=== PATIENT | female | born 1985 | race Caucasian/White ===

== ENCOUNTER 2017-02-23 09:10 | Emergency (ER) | payer BC ==
[~2017-02-23] VITALS: Ht 167.6 cm; Wt 97.0 kg
[~2017-02-23 09:10] MED LIST: HYDR-3498 PO; IBUP-1542 PO; PREN1TAB12 PO; PREN1TAB49 PO
[2017-02-23 09:33] VITALS: Ht 167.6 cm; Wt 97.0 kg
[2017-02-23 10:33] LABS: URINE BLOOD (Dip) POC 2+ (NEGATIVE)
--- NOTE | 2017-02-23 10:51 | RADRPT ---
PROCEDURE: US Pelvis CLINICAL INDICATION: R PELVIC PAIN TECHNIQUE: Multiple sonographic images of the pelvis were obtained utilizing a transabdominal and endovaginal technique. The images were reviewed on a PACS workstation. COMPARISON: None. LMP: 02/09/2017 FINDINGS: The uterus measures 8.5 x 4.4 x 6.2 cm. The endometrial echo complex measures 19 mm in thickness. No discrete lesion is seen. The right ovary measures 4.9 x 2.6 x 2.7 cm. The left ovary measures 4.9 x 1.8 x 2.3 cm. There is no rmal vascular flow in both ovaries. There is a 2.3 cm minimally complex cystic lesion with low level internal echoes in the right ovary and no significant peripheral vascular flow which is likely a hemorrhagic or corpus luteal cyst. No significant pelvic free fluid is identified. IMPRESSION: 2.3 cm minimally complex cystic lesion in the right ovary is likely a hemorrhagic or corpus luteal c yst. There is prominence of the endometrium which measures 19 mm in thickness. Correlation with a beta H CG level is recommended to evaluate for possible . RPTAT: EE Physician Gretta Date Time Electronically viewed and signed by Physician Gretta on 02/23/2017 10:51 RA/
[2017-02-23] MEDS ORDERED: IBUP-1542 PO (11:02)
[2017-02-23] MEDS ORDERED: CEPH-443 PO (11:02)
--- NOTE | 2017-02-23 11:05 | ERD ---
ER Documentation Chief Complaint Date/Time DATE: 02/23/17 TIME: 11:03 Chief Complaint RLQ ABD PAIN 3/10 WITH SPOTTING. PT STATES SHE IS NOT . HPI This 31-year-old female presents with right lower quadrant abdominal pain for the last 2 weeks with some spotting. She denies . She denies dysuria , fevers, nausea vomiting. Her last menstrual period was approximately 2 weeks ago and is usually regular. ROS All systems reviewed and are negative except as per history of present illness. Medications Home Meds Active Scripts Cephalexin* (Keflex*) 500 Mg Capsule, 500 MG PO QID for 5 Days, CAP Prov:GIDEON CHAVES MD 02/23/17 Ibuprofen* (Motrin*) 600 Mg Tab, 600 MG PO Q6, #20 TAB Prov:GIDEON CHAVES MD 02/23/17 Hydrocodone Bit-Acetaminophen* (Knott*) 5-325 Mg Tab, 1 TAB PO Q6 Y for PAIN, # 7 TAB Prov:ZEN DODGE PA-C 11/28/15 Ibuprofen* (Motrin*) 600 Mg Tab, 600 MG PO Q6, #20 TAB Prov:ZEN DODGE PA-C 11/28/15 Reported Medications Vit/Fe Fumarate/Fa ( 1-1 Tablet) 1 Tab Tablet, 1 TAB PO DAILY 10/15/12 Vits W-Ca,Fe,Fa(<1MG) () 1 Tab Tablet, 1 TAB PO 07/14/12 Allergies Allergies: Coded Allergies: No Known Allergy (Verified Allergy, Unknown, 04/23/07) PMhx/Soc History of Surgery: Yes (kidney stones) Anesthesia Reaction: No Hx Neurological Disorder: No Hx Respiratory Disorders: No Hx Cardiac Disorders: No Hx Psychiatric Problems: No Hx Miscellaneous Medical Probl: No Hx Alcohol Use: No Hx Substance Use: No Hx Tobacco Use: No Smoking Status: Never smoker Physical Exam Vitals Vital Signs Date Time Temp Pulse Resp B/P Pulse Ox O2 Delivery O2 Flow Rate FiO2 02/23/17 09:33 98.7 64 16 131/89 99 Physical Exam Const: [] Alert, [id number]. Head: Atraumatic Eyes: Normal Conjunctiva ENT: Normal External Ears, Nose and Mouth. Neck: Full range of motion..~ No meningismus. Resp: Clear to auscultation bilaterally Cardio: Regular rate and rhythm, no murmurs Abd: Soft, minimal right lower quadrant tenderness without rebound or masses. No Maher sign., non distended. Normal bowel sounds Skin: No petechiae or rashes Back: No midline or flank tenderness Ext: No cyanosis, or edema Neur: Awake and alert Psych: Normal Mood and Affect Results 24 hrs Laboratory Tests Test 02/23/17 10:33 Bedside Urine pH (LAB) 6.0 Bedside Urine Protein (LAB) Negative Bedside Urine Glucose (UA) Negative Bedside Urine Ketones (LAB) Trace Bedside Urine Blood 2+ Bedside Urine Nitrite (LAB) Negative Bedside Urine Leukocyte Esterase (L Trace Procedures/MDM Urine shows trace leukocytes and 1+ hemoglobin. HCG is negative. Pelvic ultrasound shows a 2.3 cm minimally complex cystic lesion in the right ovarian likely hemorrhagic or corpus luteum cyst. Patient presents with right lower quadrant pelvic pain for last 2 weeks with signs of an ovarian cyst. I doubt appendicitis given the absence of fever and nausea and the duration of symptoms. She will be treated with Keflex although is uncertain of she does have a UTI but will be treated given the findings on urine. She will treated with ibuprofen as well. She is advised to follow-up with primary doctor and possibly gynecology for further evaluation treatment. She should return for worsening pain, fevers, vomiting, new worsening symptoms. I am recommending a repeat ultrasound in 4-6 weeks to follow-up on cyst. There is no evidence to suggest PID, tubo-ovarian abscess, ovarian torsion. The patient was stable with no new complaints during the ER course. Clinically, there is no current evidence to suggest meningitis, sepsis, acute abdomen, pneumonia, acute coronary syndrome, pulmonary embolism, or any other emergent condition appearing to require further evaluation or hospitalization. The patient should certainly return for any new or worsening symptoms per the aftercare instructions. They should otherwise follow-up with her primary care doctor for reevaluation this week. Departure Diagnosis: Primary Impression: UTI (urinary tract infection) Urinary tract infection type: acute cystitis Hematuria presence: without hematuria Qualified Code: N30.00 - Acute cystitis without hematuria Additional Impression: Ovarian cyst Laterality: left Qualified Code: N83.202 - Cyst of left ovary Condition: Stable Patient Instructions: Understanding Urinary Tract Infections (UTIs), Ovarian Cyst Additional Instructions: There is slight signs of infection and we will treat for this although there is an ovarian cyst in the area of pain which is likely the cause of pain. These usually resolve with menstrual periods. Recheck with primary doctor in OB for follow-up. Recommend repeat ultrasound 4-6 weeks for resolution. Recheck otherwise for fevers, vomiting, new or worsening symptoms. GIDEON CHAVES MD Feb 23, 2017 11:05
== END 2017-02-23 11:16 | disposition home or self-care (01) ==
LOC: FTE 09:10
DX: N30.00 Acute cystitis without hematuria (principal); N83.202 Unspecified ovarian cyst, left side; R10.2 Pelvic and perineal pain
CPT/HCPCS: 76856; 81003

== ENCOUNTER 2018-04-09 09:27 | Emergency (ER) | END 2018-04-09 12:47 | disposition home or self-care (01) ==

== ENCOUNTER 2018-11-24 11:17 | Emergency (ER) | payer BC ==
[~2018-11-24] VITALS: Wt 94.9 kg
[~2018-11-24 11:17] MED LIST changes: +CEPH-443 PO; +CIPR500T4 PO; +FAMO-96 PO
[2018-11-24] MEDS ORDERED: LIDOCAINE/MYLANTA 40 ML BTL PO STA (11:38)
[2018-11-24] MEDS ORDERED: FAMOTIDINE 20 MG TAB PO STA (11:38)
--- NOTE | 2018-11-24 11:41 | ERD ---
ER Documentation Chief Complaint Chief Complaint AP X 10 DAYS, NAUSEA,DIARRHEA HPI 33-year-old female, with history of cholecystectomy, presents to the emergency department, complaining of 10 days with intermittent episodes of burning, sharp epigastric pain, associated with nausea, vomiting and loose stools during the last 2 days. The patient denies fevers, no chills. She has been taking Advil without improvement of the symptoms. ROS All systems reviewed and are negative except as per history of present illness. Medications Home Meds Active Scripts Acetaminophen* (Tylenol*) 325 Mg Tablet, 2 TAB PO Q8 PRN for PAIN AND OR ELEVATED TEMP, #20 TAB Prov:MARIAH TORRES MD 11/24/18 Ranitidine Hcl* (Zantac*) 150 Mg Tablet, 150 MG PO BID PRN for EPIGASTRIC PAIN, #20 TAB Prov:MARIAH TORRES MD 11/24/18 Ciprofloxacin Hcl* (Ciprofloxacin Hcl*) 250 Mg Tablet, 250 MG PO BID, #14 TAB Prov:MARIAH TORRES MD 11/24/18 Famotidine* (Pepcid*) 20 Mg Tablet, 20 MG PO BID for 4 Days, #30 TAB Prov:GERMANIA BARRIENTOS PA-C 04/09/18 Ciprofloxacin Hcl* (Ciprofloxacin Hcl*) 500 Mg Tablet, 500 MG PO BID for 7 Days, TAB Prov:GERMANIA BARRIENTOS PA-C 04/09/18 Cephalexin* (Keflex*) 500 Mg Capsule, 500 MG PO QID for 5 Days, CAP Prov:GIDEON CHAVES MD 02/23/17 Ibuprofen* (Motrin*) 600 Mg Tab, 600 MG PO Q6, #20 TAB Prov:GIDEON CHAVES MD 02/23/17 Hydrocodone Bit-Acetaminophen* ([place]*) 5-325 Mg Tab, 1 TAB PO Q6 PRN for PAIN, #7 TAB Prov:ZEN DODGE PA-C 11/28/15 Ibuprofen* (Motrin*) 600 Mg Tab, 600 MG PO Q6, #20 TAB Prov:ZEN DODGE PA-C 11/28/15 Reported Medications Vit/Fe Fumarate/Fa ( 1-1 Tablet) 1 Tab Tablet, 1 TAB PO DAILY 11/30/12 Vits W-Ca,Fe,Fa(<1MG) () 1 Tab Tablet, 1 TAB PO 07/14/12 Allergies Allergies: Coded Allergies: No Known Allergy (Verified , 04/09/18) PMhx/Soc History of Surgery: Yes (kidney stones) Anesthesia Reaction: No Hx Neurological Disorder: No Hx Respiratory Disorders: No Hx Cardiac Disorders: No Hx Psychiatric Problems: No Hx Miscellaneous Medical Probl: No Hx Alcohol Use: No Hx Substance Use: No Hx Tobacco Use: No Physical Exam Vitals Vital Signs Date Temp Pulse Resp B/P (MAP) Pulse Ox O2 O2 Flow FiO2 Time Delivery Rate 11/24/18 98.1 55 18 111/67 100 Room Air 13:18 (82) 11/24/18 98.1 66 18 127/73 99 11:18 (91) Physical Exam Const: No acute distress Head: Atraumatic Eyes: Normal Conjunctiva ENT: Normal External Ears, Nose and Mouth. Neck: Full range of motion. No meningismus. Resp: Clear to auscultation bilaterally Cardio: Regular rate and rhythm, no murmurs Abd: Soft, non tender, non distended. Normal bowel sounds Skin: No petechiae or rashes Back: No midline or flank tenderness Ext: No cyanosis, or edema Neur: Awake and alert Psych: Normal Mood and Affect Result Diagram: 11/24/18 1151 11/24/18 1151 Results 24 hrs Laboratory Tests Test 11/24/18 11:47 11/24/18 11:50 11/24/18 11:51 Bedside Urine pH (LAB) 5.5 Bedside Urine Protein (LAB) 1+ Bedside Urine Glucose (UA) Negative Bedside Urine Ketones (LAB) Trace Bedside Urine Blood Negative Bedside Urine Nitrite (LAB) Negative Bedside Urine Leukocyte Esterase (L 1+ POC Beta HCG, Qualitative NEGATIVE White Blood Count 15.4 10^3/ul Red Blood Count 4.95 10^6/ul Hemoglobin 14.2 g/dl Hematocrit 43.3 % Mean Corpuscular Volume 87.5 fl Mean Corpuscular Hemoglobin 28.7 pg Mean Corpuscular Hemoglobin Concent 32.8 g/dl Red Cell Distribution Width 13.2 % Platelet Count 217 10^3/UL Mean Platelet Volume 12.3 fl Immature Granulocytes % 0.300 % Neutrophils % % Segmented Neutrophils % (Manual) 34 % Lymphocytes % % Lymphocytes % (Manual) 34 % Reactive Lymphocytes % (Manual) 1 % Monocytes % % Monocytes % (Manual) 3 % Eosinophils % % Eosinophils % (Manual) 28 % Basophils % % Nucleated Red Blood Cells % 0.0 /100WBC Immature Granulocytes # 0.040 10^3/ul Neutrophils # 10^3/ul Lymphocytes (Manual) 5.2 10^3/ul Lymphocytes # 10^3/ul Reactive Lymphocytes # 0.1 10^3/ul Monocytes # 10^3/ul Monocytes # (Manual) 0.4 10^3/ul Eosinophils # 10^3/ul Basophils # 10^3/ul Nucleated Red Blood Cells # 10^3/ul Platelet Estimate NORMAL Giant Platelets 3 % Poikilocytosis 1+ Urine Color RAJESH Urine Clarity CLOUDY Urine pH 5.0 Urine Specific [place] 1.032 Urine Ketones TRACE mg/dL Urine Nitrite NEGATIVE mg/dL Urine Bilirubin NEGATIVE mg/dL Urine Urobilinogen NEGATIVE mg/dL Urine Leukocyte Esterase 3+ Haseeb/ul Urine Microscopic RBC 6 /HPF Urine Microscopic WBC 10 /HPF Urine Squamous Epithelial Cells MANY /HPF Urine Bacteria FEW /HPF Urine Mucus MANY /HPF Urine Hemoglobin NEGATIVE mg/dL Urine Glucose NEGATIVE mg/dL Urine Total Protein 1+ mg/dl Sodium Level 140 mmol/L Potassium Level 3.9 mmol/L Chloride Level 104 mmol/L Carbon Dioxide Level 30 mmol/L Anion Gap 6 Blood Urea Nitrogen 19 mg/dl Creatinine 0.70 mg/dl Est Glomerular Filtrat Rate mL/min > 60 mL/min Glucose Level 80 mg/dl Calcium Level 9.5 mg/dl Total Bilirubin 0.1 mg/dl Direct Bilirubin 0.00 mg/dl Indirect Bilirubin 0.1 mg/dl Aspartate Amino Transf (AST/SGOT) 27 IU/L Alanine Aminotransferase (ALT/SGPT) 23 IU/L Alkaline Phosphatase 94 IU/L Total Protein 7.5 g/dl Albumin 4.2 g/dl Globulin 3.30 g/dl Albumin/Globulin Ratio 1.27 Lipase 136 U/L Current Medications Medications Dose Sig/Anna Start Time Status Last (Trade) Ordered Route PRN Stop Time Admin Dose Reason Admin Famotidine 20 mg ONCE STAT 11/24/18 DC 11/24/18 (Pepcid) PO 11:38 11/24/18 12:01 11:44 40 ml ONCE STAT 11/24/18 DC 11/24/18 Miscellaneous PO 11:38 11/24/18 12:01 Medication 11:44 (Gi Cocktail (2)) 650 mg ONCE ONCE 11/24/18 DC 11/24/18 Acetaminophen PO 12:00 11/24/18 12:01 (Tylenol 12:01 Tab) 500 mg ONCE ONCE 11/24/18 DC 11/24/18 Ciprofloxacin PO 13:00 11/24/18 13:09 (Cipro) 13:01 Patient: ANAYA KIMBALL : 1985 Age: 33 Sex: F MR #: [id number] DOS: 11/24/18 1138 Ordering MD: MARIAH TORRES MD Location: [facility] Room/Bed: PROCEDURE: US Abdomen Right Upper Quadrant. CLINICAL INDICATION: Epigastric pain, history of cholecystectomy. TECHNIQUE: Multiple real-time longitudinal and transverse images were acquired of the patient's right upper quadrant abdomen utilizing a curved array transducer. COMPARISON: 04/09/2018 FINDINGS: Liver: The liver remains normal in size with the sagittal diameter of the right lobe measuring 14.8 cm. The liver is normal in echotexture no focal lesion is identified. There is normal directional flow of the main portal vein. Gallbladder: The gallbladder is surgically absent. Bile ducts: There is no significant intra or extrahepatic bile duct dilatation. No choledocholiths are seen within the visualized portions. The common bile duct measures 4.7 mm mm in cross diameter. Pancreas: The pancreas is obscured by bowel gas. Right kidney: Normal in echotexture and in size. The right kidney measures 12.3 cm in length. No mass, pathological calcification, or hydronephrosis is evident. Peritoneum: There is no free intraperitoneal fluid IMPRESSION: 1. Status post cholecystectomy. Again, no bile duct dilatation is evident. 2. The pancreas is again obscured by bowel gas. 3. Otherwise, stable and unremarkable right upper quadrant abdominal sonogram. Physician Dylon Date Time Electronically viewed and signed by Physician Dylon on 11/24/2018 12:44 RH/ CC: MARIAH TORRES MD [id number] Procedures/MDM Vital signs stable. Differential diagnosis include but not limited to: UTI, colitis, gastroenteritis, kidney stones, irritable bowel syndrome, inflammatory bowel syndrome, malabsorption syndrome, cholelithiasis, food intolerance, medication side effect, pancreatitis, diverticulitis, bowel obstruction. Physical examination and clinical presentation consistent most likely with UTI. During the ED course the patient remained stable, no new complaints. The patient received treatment with IV fluids and IV medications presenting overall improvement of the symptoms. Results and clinical impression discussed with the patient who agrees with management. Medical decision making shared with patient and family. The patient is stable to be treated outpatient and will be discharged home; some side effects of prescribed medications (headache, rash, nausea, vomiting, diarrhea, drowsiness, habituation, bleeding, hypertension, interactions with other medications) were reviewed. Follow up with the primary care provider in the next 48h is recommended. If symptoms persist, worsen or new symptoms develop, then patient should return to the ED immediately. Instructions explained and given directly by me to the patient with acknow ledgment and demonstrated understanding. Disclaimer: Inadvertent spelling and grammatical errors are likely due to EHR/dictation software use and do not reflect on the overall quality of patient care. Also, please note that the electronic time recorded on this note does not necessarily reflect the actual time of the patient encounter. Departure Diagnosis: Primary Impression: Abdominal pain Additional Impression: UTI (urinary tract infection) Condition: Stable Patient Instructions: Understanding Urinary Tract Infections (UTIs) Additional Instructions: Thank you very much for allowing us to participate in your care. Your health and safety is our top priority at [facility]. Call your primary care doctor TOMORROW for an appointment during the next 2-4 days and bring all the information and medications prescribed. Have prescriptions filled and follow precisely the directions on the label. If the symptoms get worse and your provider is unavailable, return to the Emergency Department immediately. MARIAH TORRES MD Nov 24, 2018 11:41
[2018-11-24] MEDS ORDERED: ACETAMINOPHEN 325 MG TAB PO ONE (12:00)
[2018-11-24] MEDS ORDERED: CIPROFLOXACIN 500 MG TAB PO ONE (13:00)
[2018-11-24] MEDS ORDERED: ACET325T33 PO (13:02)
[2018-11-24] MEDS ORDERED: CIPR-193 PO (13:02)
[2018-11-24] MEDS ORDERED: RANI150T35 PO (13:02)
[2018-11-24 13:18] VITALS: BP 111/67; PULSE 55; RESP 18
== END 2018-11-24 13:19 | disposition home or self-care (01) ==
LOC: FTE 11:17
DX: R10.13 Epigastric pain (principal)
CPT/HCPCS: 36415; 76705; 80053; 81001; 81025; 83690; 85025; 99284; Z7610; 81003